=== PATIENT | female | born 1985 | race Caucasian/White ===

== ENCOUNTER 2018-12-09 19:00 | Emergency (ER) | payer OTHER ==
[2018-12-09 19:22] VITALS: BP 142/82
[2018-12-09] MEDS ORDERED: CEPHALEXIN 500 MG CAPSULE PO ONE (19:47)
[2018-12-09] MEDS ORDERED: DEXAMETHASONE 4 MG TABLET PO ONE (19:47)
--- NOTE | 2018-12-09 19:51 | ER Document Report ---
HPI - HPI Patient complains to provider of: insect bite Time Seen by Provider: 12/09/18 19:39 Onset: Other - 2 days ago Pain Level: 1 Context: Patient states she was watching fireworks 2 days ago and got bit by an unknown insect to her left ankle. Patient complains of increased swelling redness and pruritus to the ankle. Patient denies any fever Associated Symptoms: denies: Fever Exacerbated by: Standing, Movement, Walking Relieved by: Denies Similar symptoms previously: No Recently seen / treated by doctor: No - ROS ROS below otherwise negative: Yes Systems Reviewed and Negative: Yes All other systems reviewed and negative - CONSTITUTIONAL Constitutional: DENIES: Fever - RESPIRATORY Respiratory: DENIES: Trouble Breathing - GASTROINTESTINAL Gastrointestinal: DENIES: Nausea - REPRODUCTIVE Reproductive: DENIES: : - MUSCULOSKELETAL Musculoskeletal: REPORTS: Extremity pain, Swelling - DERM Skin Color: Erythema Notes: insect bite Past Medical History - General Information source: Patient - Social History Smoking Status: Never Smoker Frequency of alcohol use: None Drug Abuse: None Occupation: none Lives with: Spouse/Significant other Family History: Reviewed & Not Pertinent Pulmonary Medical History: Reports: Other - allergies Musculoskeletal Medical History: Reports Hx Arthritis - back Psychiatric Medical History: Reports: Hx Anxiety, Hx Depression, Hx Post Traumatic Stress Disorder Past Surgical History: Reports: Hx Breast Surgery, Hx Oral Surgery Vertical Provider Document - CONSTITUTIONAL Agree With Documented VS: Yes Exam Limitations: No Limitations General Appearance: WD/WN, No Apparent Distress - INFECTION CONTROL TRAVEL OUTSIDE OF THE [place] IN LAST 30 DAYS: No - HEENT HEENT: Atraumatic - NECK Neck: Normal Inspection - RESPIRATORY Respiratory: No Respiratory Distress - CARDIOVASCULAR Cardiovascular: Regular Rate Pulses: Normal: Dorsalis pedis - MUSCULOSKELETAL/EXTREMETIES Musculoskeletal/Extremeties: MAEW, FROM, Edema - 2+ edema to left lateral ankle - NEURO Level of Consciousness: Awake, Alert, Appropriate Motor/Sensory: No Motor Deficit - DERM Integumentary: Warm, Dry. negative: Abscess Notes: Insect bites to the left lateral ankle with edema and surrounding erythema extending to dorsum of left foot Course - Re-evaluation Re-evalutation: 12/09/18 19:48 Patient with insect bites to left lateral ankle. Suspect likely inflammatory response although does have erythema extending to dorsum of foot, will cover with antibiotics at this time. No concern for septic arthritis. Patient nontoxic at this time. - Vital Signs Vital signs: Temp Pulse Resp BP Pulse Ox 98.7 F 87 18 142/82 H 98 12/09/18 19:20 12/09/18 19:20 12/09/18 19:20 12/09/18 19:20 12/09/18 19:20 Discharge - Discharge Clinical Impression: Insect bite Qualifiers: Encounter type: initial encounter Site of insect bite: foot Laterality: left Qualified Code(s): S90.862A - Insect bite (nonvenomous), left foot, initial encounter Cellulitis Qualifiers: Site of cellulitis: extremity Site of cellulitis of extremity: lower extremity Laterality: left Qualified Code(s): L03.116 - Cellulitis of left lower limb Condition: Stable Disposition: HOME, SELF-CARE Instructions: Cellulitis ([facility]), Cephalexin ([facility]), Use of Diphenhydramine, Topical Steroid Cream or Ointment ([facility]), Steroid Medication, Swollen Insect Bite or Sting ([facility]) Additional Instructions: Return immediately for any new or worsening symptoms Followup with your primary care provider, call tomorrow to make a followup appointment Take benadryl [id number] to help with itching Prescriptions: Cephalexin Monohydrate [Keflex 500 mg Capsule] 500 mg PO Q6H 5 Days capsule Triamcinolone Acetonide [Aristocort 0.1% Cream] 1 applic TP TID #60 gm Referrals: [facility] [Provider Group] - Follow up as needed
== END 2018-12-09 20:03 | disposition home or self-care (01) ==
LOC: ER 19:00
DX: S90.862A Insect bite (nonvenomous), left foot, initial encounter (principal); S90.562A Insect bite (nonvenomous), left ankle, initial encounter; L03.116 Cellulitis of left lower limb; W57.XXXA Bitten or stung by nonvenomous insect and other nonvenomous arthropods, initial encounter
CPT/HCPCS: 99281